=== PATIENT | male | born 1945 | race Caucasian/White ===

== ENCOUNTER 2017-09-06 23:22 | Emergency (ER) | payer OTHER ==
--- NOTE | 2017-09-06 23:36 | EDPHY ---
H & P Time Seen by Provider: 09/06/17 23:35 HPI/ROS: HPI CHIEF COMPLAINT: Alcohol intoxication, found HISTORY OF PRESENT ILLNESS: Patient is a 71-year-old male, presents emergency room by EMS for acute alcohol intoxication, patient was found down on the sidewalk. There is no trauma reported and no trauma on exam. However patient presents highly intoxicated with alcohol. Past Medical History: Alcoholism Past Surgical History: No recent surgery Social History: Daily alcohol use, homeless Family History: Noncontributory ROS REVIEW OF SYSTEMS: A comprehensive 10 point review of systems is otherwise negative aside from elements mentioned in the history of present illness. Exam Constitutional intoxicated, alcohol, triage nursing summary reviewed, vital signs reviewed, awake/alert. Eyes normal conjunctivae and sclera, EOMI, PERRLA. HENT normal inspection, atraumatic, moist mucus membranes, no epistaxis, neck supple/ no meningismus, no raccoon eyes. Respiratory clear to auscultation bilaterally, normal breath sounds, no respiratory distress, no wheezing. Cardiovascular rate normal, regular rhythm, no murmur, no edema, distal pulses normal. Gastrointestinal soft, non-tender, no rebound, no guarding, normal bowel sounds, no distension, no pulsatile mass. Genitourinary no CVA tenderness. Musculoskeletal no midline vertebral tenderness, full range of motion, no calf swelling, no tenderness of extremities, no meningismus, good pulses, neurovascularly intact. Skin pink, warm, & dry, no rash, skin atraumatic. Neurologic smells of alcohol, slurring speech, awake, alert and oriented x 3, AAOx3, moves all 4 extremities equally, motor intact, sensory intact, CN II-XII intact, normal cerebellar, normal vision Psychiatric normal mood/affect. Heme/Lymph/Immune no lymphadenopathy. Differential Diagnosis: Includes but is not limited to in a particular order acute alcohol intoxication, acute trauma, intracranial bleed, cervical spine injury, chest wall injury Medical Decision Making: Plan for this patient breath alcohol, CT scan head without contrast, CT cervical spine without contrast, chest x-ray. Re-evaluation: CT scan head and neck without contrast negative for acute traumatic injury. Called to me by Dr. Shelton [id number]: Serum alcohol level [id number]: Patient ambulating well throughout the emergency room without any difficulty. Clinically sober. Safe for discharge to the [facility]. Source: Patient, EMS - Medical/Surgical History Hx Asthma: No Hx Chronic Respiratory Disease: No Hx Diabetes: No Hx Cardiac Disease: No Hx Renal Disease: No Hx Cirrhosis: No Hx Alcoholism: Yes Hx HIV/AIDS: No Hx Splenectomy or Spleen Trauma: No Other PMH: ETOH, OPIOID ABUSE, BIPOLAR, DEPRESSION, CHRONIC BACK PAIN, PNEUMOTHORAX - Social History Smoking Status: Current every day smoker Constitutional: Initial Vital Signs Temperature (C) 36.7 C 09/06/17 23:30 Heart Rate 73 09/06/17 23:30 Respiratory Rate 16 09/06/17 23:30 Blood Pressure 93/60 L 09/06/17 23:30 O2 Sat (%) 94 09/06/17 23:30 O2 Delivery Mode Room Air Allergies/Adverse Reactions: No Known Allergies Allergy (Verified 09/07/17 00:27) Home Medications: Medication Instructions Recorded levOFLOXACIN [levAQUIN (RX)] 750 mg PO DAILY #6 tab 03/21/15 Medical Decision Making - Data Points Laboratory Results: 09/07/17 00:00 Ethyl Alcohol 423 mg/dL H* mg/dL (0-10) Departure - Departure Disposition: Home, Routine, Self-Care Clinical Impression: Alcohol intoxication Qualifiers: Complication of substance-induced condition: uncomplicated Qualified Code(s): F10.920 - Alcohol use, unspecified with intoxication, uncomplicated Condition: Good Instructions: Alcohol Intoxication (ED), Abuse of Alcohol (ED) Referrals: NONE *PRIMARY CARE P,. [Primary Care Provider] - As per Instructions
[2017-09-07] MEDS ORDERED: CHLORDIAZEPOXIDE 25MG PREPK#6 BTL TAKEHOME ONE (04:31)
[2017-09-07 05:22] VITALS: BP 111/66
== END 2017-09-07 05:22 | disposition home or self-care (01) ==
LOC: EDUNIT#
DX: F10.920 Alcohol use, unspecified with intoxication, uncomplicated (principal); F17.200 Nicotine dependence, unspecified, uncomplicated
CPT/HCPCS: G0480

== ENCOUNTER 2017-10-07 01:17 | Emergency (ER) | payer OTHER, MEDICAID ==
--- NOTE | 2017-10-07 01:24 | EDPHY ---
H & P Time Seen by Provider: 10/07/17 01:23 HPI/ROS: HPI CHIEF COMPLAINT: Chest pain HISTORY OF PRESENT ILLNESS: 72-year-old male, presents emergency room with chest pain. Presents by EMS. He was up in [place]. He went to the local police station for alcohol intoxication and stating he had chest pain. Patient describes a sharp pain. He denies chest wall trauma. He states it does not radiate anywhere. Of note upon arrival the patient states he would like to go to sleep and rest as he is tired. He states it started 3 hr ago. Currently at this time he denies any chest pain upon arrival to the emergency room. He does state he has been drinking alcohol tonight.. On arrival he rolled over onto his side went to sleep. He does report that his symptoms started 3 hr ago. Past Medical History: Pericarditis, alcoholism emphysematous lung disease Past Surgical History: Left lung surgery Social History: Smokes tobacco daily, daily alcohol use, denies illicit drugs. Resides in [place]. Family History: Noncontributory ROS REVIEW OF SYSTEMS: A comprehensive 10 point review of systems is otherwise negative aside from elements mentioned in the history of present illness. Exam Constitutional nontoxic appearing, elderly, frail , slight smell from alcohol triage nursing summary reviewed, vital signs reviewed, awake/alert. Eyes normal conjunctivae and sclera, EOMI, PERRLA. HENT normal inspection, atraumatic, moist mucus membranes, no epistaxis, neck supple/ no meningismus, no raccoon eyes. Respiratory clear to auscultation bilaterally, normal breath sounds, no respiratory distress, no wheezing. Cardiovascular rate normal, regular rhythm, no murmur, no edema, distal pulses normal. Gastrointestinal soft, non-tender, no rebound, no guarding, normal bowel sounds, no distension, no pulsatile mass. Genitourinary no CVA tenderness. Musculoskeletal no midline vertebral tenderness, full range of motion, no calf swelling, no tenderness of extremities, no meningismus, good pulses, neurovascularly intact. Skin pink, warm, & dry, no rash, skin atraumatic. Neurologic awake, alert and oriented x 3, AAOx3, moves all 4 extremities equally, motor intact, sensory intact, CN II-XII intact, normal cerebellar, normal vision, normal speech. Psychiatric normal mood/affect. Heme/Lymph/Immune no lymphadenopathy. Differential diagnosis includes but is not limited to: ACS, atypical chest pain , pneumothorax, pneumonia, pulmonary embolism, aortic dissection, congestive heart failure, tumor, musculoskeletal pain, esophageal pain, GERD, peptic ulcer disease, pancreatitis Medical Decision Making: Plan for this patient IV establishment, full ekg monitor tech obtain EKG, troponin, rule out acute coronary syndrome, chest x-ray, blood work, IV fluid bolus, full-dose aspirin, re-evaluate Re-evaluation: EKG interpretation by me on record in [facility] [employer] system. Impression time of EKG 1:21 a.m., this is sinus rhythm rate of 85, there is no significant ST elevation no significant ST depression. No signs of cardiac arrhythmia. When compared to his old EKG similar morphology. Dated 03/23/2015. 5:25 a.m. patient has been sleeping for the past 4 hr. He has not had any chest pain or shortness of breath. He has been resting comfortably. His blood work has been reviewed. He was intoxicated when he came in here. His initial EKG was nonischemic. Initial troponin negative. Will repeat his EKG and troponin they are negative. Repeat EKG time 5:16 a.m., sinus rhythm rate of [address] elevation no ST depression no significant T-wave abnormalities. Nonischemic normal EKG. When compared to his previous EKG similar. ED x-ray chest one view: Emphysematous changes. No evidence of pneumothorax. Patient reports that his symptoms are started 3 hr prior to arrival he has been in the emergency room for over 4 hr. He essentially had a 7 hr troponin which is -0.00. He has had 2 nonischemic EKGs. 2-troponins. A chest x-ray that shows no evidence of pneumothorax. Given that he has stable troponin stable EKGs and has been sleeping here in emergency room throughout the night intoxicated with alcohol I do feel comfortable allowing to be discharged. Return precautions discussed with them he understands return if develops worsening chest pain shortness of breath fever vomiting. Source: Patient, EMS - Medical/Surgical History Hx Asthma: No Hx Chronic Respiratory Disease: No Hx Diabetes: No Hx Cardiac Disease: No Hx Renal Disease: No Hx Cirrhosis: No Hx Alcoholism: Yes Hx HIV/AIDS: No Hx Splenectomy or Spleen Trauma: No Other PMH: ETOH, OPIOID ABUSE, BIPOLAR, DEPRESSION, CHRONIC BACK PAIN, PNEUMOTHORAX - Social History Smoking Status: Current every day smoker Constitutional: Initial Vital Signs Heart Rate 85 10/07/17 01:22 Respiratory Rate 17 10/07/17 01:22 Blood Pressure 128/66 H 10/07/17 01:22 O2 Sat (%) 99 10/07/17 01:22 O2 Delivery Mode Nasal Cannula O2 (L/minute) 2 Allergies/Adverse Reactions: No Known Allergies Allergy (Verified 09/07/17 00:27) Home Medications: Medication Instructions Recorded NK [No Known Home Meds] 10/07/17 Medical Decision Making - Data Points Laboratory Results: Laboratory Results 10/07/17 01:25 10/07/17 01:25 10/07/17 10/07/17 10/07/17 05:23 01:26 01:25 WBC RBC Hgb Hct MCV MCH MCHC RDW Plt Count MPV Neut % (Auto) Lymph % (Auto) Franklin % (Auto) Eos % (Auto) Baso % (Auto) Nucleat RBC Rel Count Absolute Neuts (auto) Absolute Lymphs (auto) Absolute Monos (auto) Absolute Eos (auto) Absolute Basos (auto) Absolute Nucleated RBC Immature Gran % Immature Gran # PT INR APTT Sodium 138 mEq/L mEq/L (135-145) Potassium 3.9 mEq/L mEq/L (3.3-5.0) Chloride 109 mEq/L mEq/L (97-110) Carbon Dioxide 21 mEq/l L mEq/l (22-31) Anion Gap 8 mEq/L mEq/L (8-16) BUN 9 mg/dL mg/dL (7-23) Creatinine 0.8 mg/dL mg/dL (0.7-1.3) Estimated GFR > 60 Glucose 78 mg/dL mg/dL (70-100) Calcium 9.4 mg/dL mg/dL (8.5-10.4) Magnesium 2.1 mg/dL mg/dL (1.6-2.3) Total Bilirubin 0.7 mg/dL mg/dL (0.1-1.4) Conjugated Bilirubin 0.2 mg/dL mg/dL (0.0-0.5) Unconjugated Bilirubin 0.5 mg/dL mg/dL (0.0-1.1) AST 33 IU/L IU/L (17-59) ALT 39 IU/L IU/L (21-72) Alkaline Phosphatase 64 IU/L IU/L (38-126) POC Troponin I 0.00 ng/mL ng/mL 0.00 ng/mL ng/mL (0.00-0.08) (0.00-0.08) NT-Pro-B Natriuret Pep 55 pg/mL pg/mL (0-125) Total Protein 6.4 g/dL g/dL (6.3-8.2) Albumin 3.5 g/dL g/dL (3.5-5.0) Lipase 238 IU/L IU/L (23-300) Ethyl Alcohol 144 mg/dL H mg/dL (0-10) 10/07/17 10/07/17 01:25 01:25 WBC 4.44 10^3/uL 10^3/uL (3.80-9.50) RBC 3.04 10^6/uL L 10^6/uL (4.40-6.38) Hgb 10.8 g/dL L g/dL (13.7-17.5) Hct 32.6 % L % (40.0-51.0) MCV 107.2 fL H fL (81.5-99.8) MCH 35.5 pg H pg (27.9-34.1) MCHC 33.1 g/dL g/dL (32.4-36.7) RDW 16.6 % H % (11.5-15.2) Plt Count 214 10^3/uL 10^3/uL (150-400) MPV 9.7 fL fL (8.7-11.7) Neut % (Auto) 68.6 % % (39.3-74.2) Lymph % (Auto) 16.9 % % (15.0-45.0) Franklin % (Auto) 7.0 % % (4.5-13.0) Eos % (Auto) 3.4 % % (0.6-7.6) Baso % (Auto) 2.3 % H % (0.3-1.7) Nucleat RBC Rel Count 0.0 % % (0.0-0.2) Absolute Neuts (auto) 3.05 10^3/uL 10^3/uL (1.70-6.50) Absolute Lymphs (auto) 0.75 10^3/uL L 10^3/uL (1.00-3.00) Absolute Monos (auto) 0.31 10^3/uL 10^3/uL (0.30-0.80) Absolute Eos (auto) 0.15 10^3/uL 10^3/uL (0.03-0.40) Absolute Basos (auto) 0.10 10^3/uL 10^3/uL (0.02-0.10) Absolute Nucleated RBC 0.00 10^3/uL 10^3/uL (0-0.01) Immature Gran % 1.8 % H % (0.0-1.1) Immature Gran # 0.08 10^3/uL 10^3/uL (0.00-0.10) PT 14.7 SEC SEC (12.0-15.0) INR 1.13 (0.83-1.16) APTT 28.8 SEC SEC (23.0-38.0) Sodium Potassium Chloride Carbon Dioxide Anion Gap BUN Creatinine Estimated GFR Glucose Calcium Magnesium Total Bilirubin Conjugated Bilirubin Unconjugated Bilirubin AST ALT Alkaline Phosphatase POC Troponin I NT-Pro-B Natriuret Pep Total Protein Albumin Lipase Ethyl Alcohol Medications Given: Discontinued Medications Aspirin Buffered (Aspirin Ec) 325 mg PO EDNOW ONE Stop: 10/07/17 01:25 Last Admin: 10/07/17 01:36 Dose: Not Given Sodium Chloride (Ns) 1,000 mls @ 0 mls/hr IV EDNOW ONE; Wide Open PRN Reason: Protocol Stop: 10/07/17 01:24 Last Admin: 10/07/17 01:36 Dose: Not Given Point of Care Test Results: Chemistry 10/07/17 10/07/17 05:23 01:26 POC Troponin I 0.00 ng/mL ng/mL 0.00 ng/mL ng/mL (0.00-0.08) (0.00-0.08) Departure - Departure Disposition: Home, Routine, Self-Care Clinical Impression: Chest pain Qualifiers: Chest pain type: unspecified Qualified Code(s): R07.9 - Chest pain, unspecified Condition: Good Instructions: Alcohol Intoxication (ED), Abuse of Alcohol (ED) Additional Instructions: 1. Return emergency room if you have any worsening symptoms questions or concerns includes chest pain or shortness of breath. 2. Please refrain from drinking alcohol. Referrals: Patient,NotPresent [Unknown] - As per Instructions
[2017-10-07] MEDS ORDERED: ASPIRIN 81 MG CHEWABLE TAB ONE (01:26)
--- NOTE | 2017-10-07 01:27 | CPEKG ---
Heart Rate: 85 RR Interval: 706 P-R Interval: 144 QRSD Interval: 84 QT Interval: 352 QTC Interval: 419 P Kennett: 68 QRS Kennett: 25 T Wave Kennett: 42 EKG Severity - BORDERLINE ECG - EKG Impression: SINUS RHYTHM EKG Impression: PROBABLE LEFT ATRIAL ABNORMALITY Electronically Signed By: Aramis Kearns 07-Oct-2017 07:56:06
[2017-10-07] MEDS: ASPIRIN EC 325 MG TAB PO ONE ×2 (01:32→01:36)
[2017-10-07] MEDS: NS 1,000 ML IV ONE ×2 (01:32→01:36)
[2017-10-07 01:38] LABS: PLATELET COUNT 214 10^3/uL (150-400)
[2017-10-07 01:46] LABS: INR 1.13 (0.83-1.16); PROTIME(PATIENT) 14.7 SEC (12.0-15.0)
--- NOTE | 2017-10-07 05:18 | CPEKG ---
Heart Rate: 75 RR Interval: 800 P-R Interval: 144 QRSD Interval: 88 QT Interval: 372 QTC Interval: 416 P Galt: 59 QRS Galt: 8 T Wave Galt: 41 EKG Severity - NORMAL ECG - EKG Impression: SINUS RHYTHM Electronically Signed By: Aramis Kearns 07-Oct-2017 07:56:06
[2017-10-07 05:57] VITALS: BP 115/76
== END 2017-10-07 05:57 | disposition home or self-care (01) ==
LOC: EDUNIT#
DX: R07.9 Chest pain, unspecified (principal); F17.200 Nicotine dependence, unspecified, uncomplicated
CPT/HCPCS: 84484-PO; G0480